=== PATIENT | male | born 1960 | race Caucasian/White ===

== ENCOUNTER 2018-01-18 20:41 | Emergency (ER) | payer SELFPAY ==
--- NOTE | 2018-01-18 20:44 | ER Report ---
History and Physical Time Seen By MD: 20:44 HPI/ROS CHIEF COMPLAINT: Back pain, chest pain HISTORY OF PRESENT ILLNESS: 57-year-old healthy male presents ambulatory to the ER concerned about another night of not sleeping. He's having severe pain between his shoulder blades radiating to his chest. He thinks it might be a hiatal hernia. He's been not feeling well all week. He denies history of cardiac disease. He denies recent URI cough sore throat fever or chills. He describes 7/10 dull pain, aching between his shoulder blades and radiating to his epigastrium. Patient denies diaphoresis, shortness of breath or dizziness. Patient denies changes with exertion. Patient denies leg swelling or calf pain. Patient reports he went antelope hunting and harvested antelope which he dragged to the car and lifted with his daughter. He notes no pain or difficulty with exertion. Patient was unable to sleep last night. Since the pain. Tonight out of 10 at approximately 12:30 Him awake all night. It did ease up throughout the day. REVIEW OF SYSTEMS: Respiratory: No cough, no dyspnea. Cardiovascular: No chest pain, no palpitations. Gastrointestinal: No vomiting, no abdominal pain. Musculoskeletal: As above Allergies: Coded Allergies: Penicillins (Verified Allergy, Unknown, 01/18/18) Home Meds Active Scripts Oxycodone Hcl/Acetaminophen (PERCOCET 5-325 MG TABLET) 1 Each Tablet, 1-2 EACH PO Q4-6H PRN for pain, #20 Prov:YANELI DUARTE DO 01/18/18 Reviewed Nurses Notes: Yes Old Medical Records Reviewed: Yes Constitutional Vital Sign - Last 24 Hours 01/18/18 01/18/18 01/18/18 01/18/18 20:41 20:44 20:45 20:56 Temp 98.5 Pulse ??? 66 63 Resp 16 21 B/P (MAP) 137/92 137/92 (107) Pulse Ox 96 O2 Delivery Room Air 01/18/18 01/18/18 01/18/18 21:11 21:13 23:57 Pulse 64 80 Resp 12 17 B/P (MAP) 130/83 (99) 131/91 (104) Pulse Ox 97 95 O2 Delivery Room Air Physical Exam General Appearance: The patient is alert, has no immediate need for airway protection and no current signs of toxicity. Mild distress, skin warm, dry, pink HEENT: Pupils equal and round no injection. TMs normal, oropharynx without redness or exudate, mucous membranes are moist Respiratory: Chest is non tender, lungs are clear to auscultation. No chest wall tenderness on compression Cardiac: regular rate and rhythm Gastrointestinal: Abdomen is soft and non tender, no masses, bowel sounds normal. Musculoskeletal: Neck: Neck is supple and non tender. Back: There is some tenderness on deep palpation of the right paraspinous muscles in the upper thoracic region. Extremities have full range of motion and are non tender. Skin: No rashes or lesions. DIFFERENTIAL DIAGNOSIS: After history and physical exam differential diagnosis was considered for back pain including but not limited to muscular pain, herniated disc, spine fracture, intra-abdominal causes and urinary tract infection. Additionally,chest pain including but not limited to myocardial ischemia, pericarditis pulmonary embolus, chest wall pain, pleural inflammation and pulmonary infectious causes. Medical Decision Making Data Points Result Diagram: 01/18/18205001/18/182050 Laboratory Hematology Test 01/18/18 20:51 Red Blood Count 5.53 M/uL (4.00-5.60) Mean Corpuscular Volume 86.7 fL (80.0-96.0) Mean Corpuscular Hemoglobin 28.7 pg (26.0-33.0) Mean Corpuscular Hemoglobin Concent 33.1 g/dL (32.0-36.0) Red Cell Distribution Width 14.0 % (11.5-14.5) Mean Platelet Volume 8.4 fL (7.2-11.1) Neutrophils (%) (Auto) 55.8 % (39.4-72.5) Lymphocytes (%) (Auto) 33.3 % (17.6-49.6) Monocytes (%) (Auto) 7.2 % (4.1-12.4) Eosinophils (%) (Auto) 2.6 % (0.4-6.7) Basophils (%) (Auto) 1.1 % (0.3-1.4) Nucleated RBC Relative Count (auto) 0.0 /100WBC Neutrophils # (Auto) 5.1 K/uL (2.0-7.4) Lymphocytes # (Auto) 3.0 K/uL (1.3-3.6) Monocytes # (Auto) 0.7 K/uL (0.3-1.0) Eosinophils # (Auto) 0.2 K/uL (0.0-0.5) Basophils # (Auto) 0.1 K/uL (0.0-0.1) Nucleated RBC Absolute Count (auto) 0.00 K/uL D-Dimer Quantitative (PE/DVT) 5.08 ug/ml (0-0.50) Sodium Level 140 mmol/L (137-145) Potassium Level 4.0 mmol/L (3.5-5.0) Chloride Level 100 mmol/L (98-107) Carbon Dioxide Level 28 mmol/L (22-30) Blood Urea Nitrogen 18 mg/dl (9-21) Creatinine 1.00 mg/dl (0.66-1.25) Glomerular Filtration Rate Calc > 60.0 Random Glucose 112 mg/dl (75-110) Calcium Level 9.1 mg/dl (8.4-10.2) Total Bilirubin 0.4 mg/dl (0.2-1.3) Aspartate Amino Transf (AST/SGOT) 37 U/L (0-35) Alanine Aminotransferase (ALT/SGPT) 30 U/L (0-56) Alkaline Phosphatase 80 U/L (0-126) Troponin I < 0.012 ng/ml B-Type Natriuretic Peptide 13 pg/ml (0-100) Total Protein 7.1 g/dl (6.3-8.2) Albumin 4.2 g/dl (3.5-5.0) Chemistry Test 01/18/18 20:51 White Blood Count 9.1 k/uL (4.5-11.0) Red Blood Count 5.53 M/uL (4.00-5.60) Hemoglobin 15.9 g/dL (14.0-18.0) Hematocrit 48.0 % (42.0-52.0) Mean Corpuscular Volume 86.7 fL (80.0-96.0) Mean Corpuscular Hemoglobin 28.7 pg (26.0-33.0) Mean Corpuscular Hemoglobin Concent 33.1 g/dL (32.0-36.0) Red Cell Distribution Width 14.0 % (11.5-14.5) Platelet Count 161 K/uL (150-450) Mean Platelet Volume 8.4 fL (7.2-11.1) Neutrophils (%) (Auto) 55.8 % (39.4-72.5) Lymphocytes (%) (Auto) 33.3 % (17.6-49.6) Monocytes (%) (Auto) 7.2 % (4.1-12.4) Eosinophils (%) (Auto) 2.6 % (0.4-6.7) Basophils (%) (Auto) 1.1 % (0.3-1.4) Nucleated RBC Relative Count (auto) 0.0 /100WBC Neutrophils # (Auto) 5.1 K/uL (2.0-7.4) Lymphocytes # (Auto) 3.0 K/uL (1.3-3.6) Monocytes # (Auto) 0.7 K/uL (0.3-1.0) Eosinophils # (Auto) 0.2 K/uL (0.0-0.5) Basophils # (Auto) 0.1 K/uL (0.0-0.1) Nucleated RBC Absolute Count (auto) 0.00 K/uL D-Dimer Quantitative (PE/DVT) 5.08 ug/ml (0-0.50) Glomerular Filtration Rate Calc > 60.0 Calcium Level 9.1 mg/dl (8.4-10.2) Total Bilirubin 0.4 mg/dl (0.2-1.3) Aspartate Amino Transf (AST/SGOT) 37 U/L (0-35) Alanine Aminotransferase (ALT/SGPT) 30 U/L (0-56) Alkaline Phosphatase 80 U/L (0-126) Troponin I < 0.012 ng/ml B-Type Natriuretic Peptide 13 pg/ml (0-100) Total Protein 7.1 g/dl (6.3-8.2) Albumin 4.2 g/dl (3.5-5.0) Coagulation Test 01/18/18 20:51 D-Dimer Quantitative (PE/DVT) 5.08 ug/ml EKG/Imaging EKG Interpretation 12 lead EK Rhythm: normal sinus rhythm, bradycardic rhythm at 61 bpm [place]: normal QRS: normal ST segments: normal, no evidence of ischemia or dysrhythmia Imaging X-ray: Two-view chest x-ray was obtained. I viewed the images myself on the PACS system. My interpretation of the images is: No infiltrate, no effusion, no rmal mediastinum. The radiologist interpretation had no clinically significant variation from this interpretation. Results: CT scan of the CTA pulmonary angiogram was obtained. The results of the study are CT angiogram of the chest: Indication: Back pain. Elevated d-dimer. Technique: Helical CT was performed through the chest following IV contrast enhancement with 75 cc of Isovue 370. Multiplanar reconstructions and MIP images are reviewed. One of the following dose optimization techniques was utilized in the performance of this exam: Automated exposure control; adjustment of the mA and/or kV according to the patient's size; or use of an iterative reconstruction technique. Specific details can be referenced in the facility's radiology CT exam operational policy. Comparison: None. Pulmonary arteries: There is uniform contrast enhancement. There are are no signs of pulmonary emboli. Aorta and great vessels: There is uniform contrast enhancement. No evidence of aneurysm or dissection. Heart and pericardial soft tissues: Within normal limits. Mediastinal soft tissues: Within normal limits. Lung moreno: Well-expanded and clear. No focal or diffuse opacities. Pleural spaces: No evidence of effusion, focal pleural thickening, or pneumothorax. Skeletal structures: There is poorly defined osteolytic destruction of the T3 vertebral body, with involvement of the left pedicle and transverse process. The appearance is consistent with malignancy, which may be primary or secondary. No other destructive skeletal lesions are clearly identified in the thoracic spine, ribs, scapulae, clavicles, or sternum. Upper abdomen: There are scattered tiny hypodense lesions in the liver, which appear cystic. IMPRESSION: No evidence of pulmonary emboli. No focal parenchymal or pleural abnormality. There is a destructive skeletal lesion at T3, consistent with primary or secondary malignancy. The study was read by the radiologist. I viewed the images myself on the PACS system. ED Course/Re-evaluation Clinical Indication for ER IV: IV Access ED Course Patient was admitted to an examination room. H&P was done. The differential diagnoses was considered. On clinical examination. Patient has significant pain between his shoulder blades. Patient has no other symptoms. He was recently and follow-up hunting and lifted an antelope into the back of his truck. I'm wondering if there is some musculoskeletal injury to his thoracic region. Diagnostic evaluation is undertaken. His EKG and troponin are unremarkable. His d-dimer is elevated to [address] angiogram is performed to rule out pulmonary embolism. The CT scan findings no pulmonary embolisms, but there is a lytic lesion noted in the T3 vertebrae worrisome for malignancy. Patient's informed of his results and provided a CAT scan report. He's advised to follow-up with oncology early next week for further diagnostic evaluation. Decision to Disposition Date: Jan 18, 2018 Decision to Disposition Time: 23:21 Depart Departure Latest Vital Signs Vital Signs Date Time Temp Pulse Resp B/P (MAP) Pulse Ox O2 Delivery O2 Flow Rate FiO2 01/18/18 23:57 80 17 131/91 (104) 95 Room Air 01/18/18 20:44 98.5 Impression: Primary Impression: Lytic bone lesions on xray Additional Impression: Thoracic back pain Condition: Improved Disposition: HOME OR SELF-CARE Referrals: EMPERATRIZ ESCUDERO MD, STEVEN R MD New Scripts Oxycodone Hcl/Acetaminophen (PERCOCET 5-325 MG TABLET) 1 Each Tablet 1-2 EACH PO Q4-6H PRN for pain, #20 Prov: YANELI DUARTE DO 01/18/18 Patient Instructions: Back Pain (ED) Additional Instructions: Take ibuprofen 200 mg 3 tablets 3 times a day as needed for pain relief Follow-up with oncology clinic early next week Problem Qualifiers Additional Impression: Thoracic back pain Chronicity: acute Back pain laterality: midline Qualified Codes: M54.6 - Pain in thoracic spine YANELI DUARTE DO Jan 18, 2018 20:44
[2018-01-18] MEDS ORDERED: ASPIRIN 81 MG CHEW PO ONE (20:55)
[2018-01-18 21:02] LABS: PLATELET COUNT, AUTOMATED 161 K/uL (150-450)
[2018-01-18] MEDS ORDERED: LIDOCAINE 2% VISC SLN 15ML UDC PO ONE (21:05)
[2018-01-18] MEDS ORDERED: MAG HYD/AL HYD/SIMETH 30ML UDC PO ONE (21:05)
--- NOTE | 2018-01-18 21:38 | RADIOLOGY IMAGING REPORT ---
FACILITY: [facility] - [place] PATIENT NAME: Jean Paul Go : 1960 MR: [id number] V: [id number] EXAM DATE: ORDERING PHYSICIAN: YANELI DUARTE TECHNOLOGIST: Location: [facility] [place] Patient: Jean Paul Go : 1960 Visit/Account:[id number] Date of Sevice: 01/18/2018 EXAMINATION: Chest 2 Views HISTORY: Chest pain. COMPARISON: None. FINDINGS: The lungs are clear. No focal consolidation or pleural fluid. No pneumothorax. Normal cardiomedias tinal silhouette, with normal heart size and pulmonary vascularity. Visualized osseous structures ar e unremarkable. IMPRESSION: Negative chest. Report Dictated By: Pj Villegas MD at 01/18/2018 9:32 PM Report E-Signed By: Pj Villegas MD at 01/18/2018 9:33 PM [id number]
--- NOTE | 2018-01-18 21:40 | EKG ---
FACILITY: [facility] PATIENT NAME: KARLEY ARROYO : [id number] MR: [id number] V: [id number] EXAM DATE: ORDERING PHYSICIAN: YANELI DUARTE TECHNOLOGIST: DEVORAH Test Reason : CP Blood Pressure : / mmHG Vent. Rate : 061 BPM Atrial Rate : 061 BPM P-R Int : 190 ms QRS Dur : 092 ms QT Int : 440 ms P-R-T Axes : 071 070 070 degrees QTc Int : 442 ms Normal sinus rhythm Normal ECG No previous ECGs available Confirmed by NEERU AGUILERA ([id number]) on 01/19/2018 6:36:41 AM Referred By: FELICIA Confirmed By:NEERU AGUILERA
[2018-01-18] MEDS ORDERED: NS(*) 0.9% 50 ML BAG 50 ML ONE (22:19)
[2018-01-18] MEDS ORDERED: IOPAMIDOL 76% 75 ML INFUS BTL 75 ML ONE (22:19)
--- NOTE | 2018-01-18 23:20 | RADIOLOGY IMAGING REPORT ---
[facility] PATIENT NAME: Jean Paul Go : 1960 MR: [id number] V: [id number] EXAM DATE: ORDERING PHYSICIAN: YANELI PERSAUD TECHNOLOGIST: Location: [facility] Patient: Jean Paul Go : 1960 Visit/Account:[id number] Date of Sevice: 01/18/2018 CT angiogram of the chest: Indication: Back pain. Elevated d-dimer. Technique: Helical CT was performed through the chest following IV contrast enhancement with 75 cc of Isovue 370. Multiplanar reconstructions and MIP images are reviewed. One of the following dose optimization techniques was utilized in the performance of this exam: Autom ated exposure control; adjustment of the mA and/or kV according to the patient's size; or use of an i terative reconstruction technique. Specific details can be referenced in the facility's radiology CT exam operational policy. Comparison: None. Pulmonary arteries: There is uniform contrast enhancement. There are are no signs of pulmonary emboli . Aorta and great vessels: There is uniform contrast enhancement. No evidence of aneurysm or dissection . Heart and pericardial soft tissues: Within normal limits. Mediastinal soft tissues: Within normal limits. Lung moreno: Well-expanded and clear. No focal or diffuse opacities. Pleural spaces: No evidence of effusion, focal pleural thickening, or pneumothorax. Skeletal structures: There is poorly defined osteolytic destruction of the T3 vertebral body, with in volvement of the left pedicle and transverse process. The appearance is consistent with malignancy, w hich may be primary or secondary. No other destructive skeletal lesions are clearly identified in the thoracic spine, ribs, scapulae, clavicles, or sternum. Upper abdomen: There are scattered tiny hypodense lesions in the liver, which appear cystic. IMPRESSION: No evidence of pulmonary emboli. No focal parenchymal or pleural abnormality. There is a destructive skeletal lesion at T3, consistent with primary or secondary malignancy. A preliminary report was called to Dr. Persaud at [facility] at 2305 hours. Report Dictated By: Aston Rodriguez MD at 01/18/2018 10:53 PM Report E-Signed By: Aston Rodriguez MD at 01/18/2018 11:16 PM WSN:[id number]
[2018-01-18] MEDS ORDERED: OXYC-865 PO (23:27)
[2018-01-18] MEDS ORDERED: oxyCODONE/ACETAMIN 5/325MG TH 2 TAB/BOTTLE PO ONE ×2 (23:30)
[2018-01-18 23:57] VITALS: BP 131/91
== END 2018-01-18 23:44 | disposition home or self-care (01) ==
LOC: ER 20:57
DX: M89.9 Disorder of bone, unspecified (principal); M54.6 Pain in thoracic spine
CPT/HCPCS: 71046; 71275; 83880; 84484; 85025; 85379; 93005; 99284; J7050; Q9967; 82040; 82247; 82310; 82374; 82435; 82565; 82947; 84075; 84132; 84155; 84295; 84450; 84460; 84520

== ENCOUNTER → 2018-01-28 | Outpatient (CLI) | payer SELFPAY ==
[~2018-01-28] MED LIST: GADOBENATE 529MG/1ML 15ML VIAL IVP ONE; NS(*) 0.9% 50 ML BAG 50 ML ONE; OXYC-865 PO
--- NOTE | 2018-01-28 15:33 | RADIOLOGY IMAGING REPORT ---
FACILITY: [facility] PATIENT NAME: Jean Paul Go : 1960 MR: [id number] V: [id number] EXAM DATE: ORDERING PHYSICIAN: AFIA ROBLES TECHNOLOGIST: Location: [facility] Patient: Jean Paul Go : 1960 Visit/Account:[id number] Date of Sevice: 01/28/2018 ABDOMEN W W/O CONTRAST HISTORY: Liver lesions on prior CT ADDITIONAL HISTORY: None. TECHNIQUE: TECHNIQUE: Multiplanar multisequence magnetic resonance imaging of the abdomen with and without intravenous contrast. CONTRAST: 15 mL of MultiHance COMPARISON: CT on pelvis January 22, 2018 FINDINGS: Visualized lung bases: Grossly unremarkable. Liver: There are multiple small cysts seen throughout the liver. Additionally there is a 1.9 cm mass in the caudate lobe the liver demonstrate increased T2 signal intensity with small amount of arteria l enhancement. There was further progressive enhancement on the follow-up portal venous and delayed phase images. The mass never becomes completely enhanced although was most likely a hemangioma. The re is also a 1.8 cm mass anterior aspect lateral segment left lobe of the liver that demonstrates inc reased T2 signal intensity and delayed puddling type peripheral contrast enhancement on the five-jaci te image. There is very little enhancement on the other phases. This likely represents a hemangioma Gallbladder: Negative. Bile ducts: Nondistended and unremarkable. Spleen: Negative. Adrenal glands: Negative. Pancreas: Negative. Kidneys: Negative. Vessels/spaces/nodes: No bulky adenopathy or ascities. Visualized GI: Grossly unremarkable. Bones/soft tissues: Incompletely imaged is abnormal increased T2 signal intensity in the left iliac b one which corresponds to the moth-eaten lytic lesion seen on CT IMPRESSION: There are multiple lesions within the liver. Many appear to represent cysts. There is a 1.8 cm mass anterior aspect lateral segment left lobe of the liver that demonstrates delayed puddling type perip heral contrast enhancement on the five minute image. There is very little enhancement on the other p hases. This likely represents a hemangioma although is not entirely typical. Also noted is 1.9 cm m ass in the caudate lobe of the liver which also likely represents a hemangioma although again not ent irely typical. Given the CT findings of osseous metastases 3-6 month follow-up MR of these liver les ions recommended for further evaluation Incompletely imaged is abnormal bone lesions the left iliac bone consistent with the prior CT finding s of lytic metastases Report Dictated By: Oma Ding MD at 01/28/2018 3:14 PM Report E-Signed By: Oma Ding MD at 01/28/2018 3:29 PM WSN:[id number]
== END ==
LOC: MRI 13:32
PROVIDERS: ATTEND Nurse Practitioner
DX: K76.9 Liver disease, unspecified (principal); M89.9 Disorder of bone, unspecified
CPT/HCPCS: 74183; A9577; J7050

== ENCOUNTER 2018-01-29 12:25 | Outpatient (RCR) | payer SELFPAY ==
[2018-01-22 10:46] VITALS: BP 120/75
--- NOTE | 2018-01-22 13:22 | ONCOLOGY HISTORY AND PHYSICAL ---
CHIEF COMPLAINT "I have a lesion on my back." HISTORY OF PRESENT ILLNESS Patient is a 57-year-old male who was seen today for evaluation of recently found destructive lesion at T3. He is a healthy male with no medical problems, but presented to the emergency room on 01/18/2018 with back/chest pain. Cardiac workup was negative. D-dimer was elevated. He underwent a CT with angiogram. No pulmonary embolism was found. There were no focal abnormalities noted in the lung. However, a destructive lesion was noted at T3, consistent with primary or secondary malignancy. He relates that he's had intermittent back pain for the past year but this is significantly worse. He has had 3-4 days of drenching night sweats. He also describes some urinary hesitency and difficulty emptying. Mr. Go presents today with his to establish care and workup. PAST MEDICAL HISTORY Negative. FAMILY HISTORY Brother of leukemia at age 33 years old. A second brother at melanoma at age 65. He has a third brother who is healthy. SOCIAL HISTORY Patient is . They have two children, ages 26 and 35. 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 He is a nonsmoker. He does not use illicit drugs. MEDICATIONS Percocet p.r.n. ALLERGIES PENICILLIN. REVIEW OF SYSTEMS CONSTITUTIONAL: No fevers or chills. One to two week history of drenching night sweats, which have occurred intermittently. He has lost weight, approximately 10 pounds over the past month. HEENT: No tinnitus. No nasal discharge. No sore throat. RESPIRATORY: No cough, wheezing, or hemoptysis. CARDIOVASCULAR: Some chest discomfort, which he relates is related to taking deep breaths, likely secondary to back pain. GASTROINTESTINAL: No nausea, vomiting, or diarrhea. Mild constipation associated with Percocet. GENITOURINARY: Some issues with occasionally weak stream and delayed emptying, intermittent. No hematuria or dysuria. MUSCULOSKELETAL: Mid back pain as discussed above. This is intermittent, but persistent. HEMATOLOGIC: No bruising or bleeding. SKIN: No rash. PHYSICAL EXAMINATION VITAL SIGNS: Weight 79.2 kg, blood pressure 120/75, pulse 56, respirations 16, temperature 96.9, O2 saturation 96% on room air. GENERAL: Patient is a well-developed, well-nourished male in no acute distress. He moves gingerly in the exam room when lying on the table. HEENT: Head: Normocephalic, atraumatic. Eyes: No scleral icterus. Mouth: Moist mucous membranes. No lesions noted. No pharyngeal erythema. NECK: Supple. No masses. LYMPHATIC: No palpable adenopathy. CARDIOVASCULAR: Heart rate regular, 56 per minute without murmur, S3 or S4. LUNGS: Clear bilaterally. ABDOMEN: Soft, nontender, nondistended. Active bowel sounds. No masses or organomegaly. EXTREMITIES: No edema. NEUROLOGIC: Nonfocal. DIAGNOSTIC DATA CBC on 01/18/2018 showed a WBC of 9.1, hemoglobin 15.9, hematocrit 48.0, platelets 161,000. CMP was completely within normal limits. IMPRESSION AND PLAN The patient is a 57-year-old healthy male who presented to the emergency room on 01/18/2018 with upper back pain versus chest pain. He underwent cardiac workup, which was negative. CT angiogram showed no evidence of pulmonary embolism or other focal abnormalities. However, a destructive lesion was noted at T3. He is here for workup and plan. 1. Case has been reviewed by Dr. Tom. At this time, workup will be completed with a CT of the abdomen and pelvis. This will be done today. 2. PSA, CEA and LDH will be drawn today. 3. We spent a total of 45 minutes reviewing his history and plan. He understands that a biopsy of the T3 lesion may be needed. Dr. Tom will review all of the above when available, and further plans will be made at that time. SOFI
--- NOTE | 2018-01-22 17:38 | RADIOLOGY IMAGING REPORT ---
FACILITY: [facility] [place] PATIENT NAME: Jean Paul Go : 1960 MR: [id number] V: [id number] EXAM DATE: [id number] ORDERING PHYSICIAN: AFIA ROBLES TECHNOLOGIST: [place] [facility] [place]: Jean Paul Go : 1960 Visit/Account:[id number] Date of Sevice: 01/22/2018 ABDOMEN/PELVIS W/WO CONTRAST HISTORY: Lytic lesion at T3 TECHNIQUE: Axial images acquired through the abdomen/pelvis both with and without IV contrast.. Vlad nal and sagittal reformatting also performed.Dose Lowering Technique One of the following dose optimization techniques was utilized in the performance of this exam: Autom ated exposure control; adjustment of the mA and/or kV according to the patient's size; or use of an i terative reconstruction technique. Specific details can be referenced in the facility's radiology C T exam operational policy. CONTRAST: 75 mL Isovue-370 COMPARISON: CT of the chest January 18, 2018 FINDINGS: Visualized lung bases: Negative. Hepatobiliary: There are multiple round hypoattenuating masses seen throughout the liver. Many are too small to characterize by CT. The 1.5 cm lesion inferior aspect right lobe appears to represent s imple cyst. Is a 1.8 cm lesion in the caudate lobe the CT Hounsfield units of 50 which is not compat ible with a simple cyst. There is a 2.3 cm slightly exophytic cortical lesion anterior aspect of the lateral segment of the left lobe with CT Hounsfield units of 49 also not consistent with a simple cy st. Spleen: Negative. Adrenals: Negative. Pancreas: Negative. Kidneys ureters and bladder: Negative. Genitalia: Negative. GI: There is diverticulosis of the left-sided colon although no CT evidence of acute diverticulitis. There is extensive amount of fecal material seen throughout the colon which can be seen with consti pation. The appendix is visualized and does not appear distended Vessels/spaces/nodes: Negative. Bones/soft tissues: There is a moderately lytic destructive process throughout the inferior pubic ra mus on the left. There are several lytic lesions involving the medial aspect of the superior pubic ramus on the right without cortical disruption. . There are multiple lytic lesions in the left iliac bone producing destructive changes of the medial a nd lateral. Cortices Additional findings: None pertinent. IMPRESSION: There are lytic lesions involving the inferior pubic ramus on the left, medial aspect superior pubic ramus on the right and the left iliac bone consistent with metastatic disease. Diverticulosis left-sided colon although no CT evidence of acute diverticulitis There is an extensive amount of fecal material throughout colon which can be seen with constipation There are multiple hypoattenuating masses within the liver. Some appear to represent cysts although some are clearly solid and should be further evaluated with MR the liver with and without contrast Report Dictated By: Oma Ding MD at 01/22/2018 5:22 PM Report E-Signed By: Oma Ding MD at 01/22/2018 5:34 PM CATARINON:ELISABET
--- NOTE | 2018-01-23 16:51 | ONCOLOGY FOLLOW UP NOTE ---
EVENT DATE: January 23, 2018 I spoke with and Mrs. Go today via telephone regarding the results of his recent CT scan of the abdomen and pelvis done on 01/22/18. This is a 57-year-old male who was noted to have a destructive lesion at T3 when seen at the Emergency Room last week. I reviewed the findings of the CT scan which show lytic lesions involving the inferior pubic ramus on the left medial aspect, superior pubic ramus on the right, and left iliac bone, consistent with metastatic disease. The liver also noted multiple hypoattenuating masses. Some appear to represent cysts, although some are clearly solid. It was recommended that MR of the liver with and without contrast be done. PSA 379; CEA pending. I have also reviewed this with Dr. Tom. At this time, he will undergo MRI of the liver on 01/28/18. He will be seen by Dr. Tom on 01/29/18 for further treatment planning. Patient and his state understanding. We will see them next week after MRI of the liver. SOFI
[~2018-01-29] VITALS: Ht 182.9 cm; Wt 78.8 kg
[~2018-01-29 12:25] MED LIST changes: -GADOBENATE 529MG/1ML 15ML VIAL IVP ONE; +IOPAMIDOL 76% 75 ML INFUS BTL 75 ML ONE; -NS(*) 0.9% 50 ML BAG 50 ML ONE
[2018-01-29 12:35] VITALS: BP 121/80
--- NOTE | 2018-01-30 03:56 | ONCOLOGY FOLLOW UP NOTE ---
EVENT DATE: January 29, 2018 REASON FOR FOLLOWUP Back pain, T3 lesion, elevated PSA. INTERIM HISTORY Gonzalo returns to the clinic for a followup visit today. He is accompanied by his . He reports that his pain control has been a bit better since his last visit. He reports no fevers, chills, or sweats. His appetite is good and his weight has been stable. He reports no new urinary symptoms, although he does state that he has a big prostate. He reports no shortness of breath, chest pain, or cough. He did have somewhat of an acute and fleeting pain episode during our visit today, but quickly became comfortable once again. As discussed, he had previously gone for a CT scan of the chest that showed an incidental destructive lesion at T3. He subsequently went for a CT scan of the abdomen and pelvis as well as subsequent MRI of the abdomen. He is here to review these results. He has also had labs drawn, to include a CEA and PSA. REVIEW OF SYSTEMS Otherwise negative on all systems reviewed. PAST MEDICAL HISTORY The patient is otherwise healthy. CURRENT MEDICATIONS Percocet p.r.n. ALLERGIES PENICILLIN. FAMILY HISTORY His brother of leukemia at age 33 years old. A second brother of melanoma at age 65. A third brother is healthy. SOCIAL HISTORY The patient is with two children, who are grown. 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 He is a nonsmoker. He does not use illicit drugs. PHYSICAL EXAMINATION VITAL SIGNS: Temperature is 97.0, blood pressure 121/80, heart rate 70, respirations 16, oxygen saturation 96% on room air, weight 78.8 kg. GENERAL: Patient is alert and oriented x3, in no apparent distress, sitting in the exam room chair. He appears quite healthy. He is interactive and very pleasant. HEENT: Anicteric sclerae. NEUROLOGIC: Grossly nonfocal. His gait is normal. EXTREMITIES: No edema, clubbing, or cyanosis. SKIN: Not concerning for rash or lesion. LABORATORY STUDIES Reviewed per the [facility] record. Of note, his PSA on January 22 was 392. CEA on that day was 1.8. ASSESSMENT AND PLAN Metastatic prostate cancer. For the time being this is working diagnosis. We spent a good deal of time today discussing the need for a tissue diagnosis. We discussed the utility of biopsying the T3 vertebral lesion. The images will be reviewed in [place], and I will enter an order for interventional radiology biopsy of the vertebral lesion. Another potential site would be the pubic ramus. The patient would like to avoid prostate biopsies, and as discussed today, I do not think these will be necessary. We discussed the likely diagnosis of prostate cancer, and we did get into preliminary information about his treatment, prognosis, and other topics. The patient and his had additional questions for me today, and I believe I answered all their questions to their satisfaction. I will plan to have him back for followup in the next two weeks to allow time for biopsy to occur. Next likely step will be for him to go for additional imaging for staging (CT with nuclear medicine bone scan) to complete staging. I spent a total of 45 minutes of time with the patient and his today, and 40 minutes of this was spent in direct counseling and coordination of care. SOFI
== END 2018-04-22 ==
LOC: ONC 12:25
PROVIDERS: ATTEND Nurse Practitioner
DX: M89.9 Disorder of bone, unspecified (principal); R39.11 Hesitancy of micturition; R39.14 Feeling of incomplete bladder emptying
CPT/HCPCS: 36415; 74178; 82378; 83615; 84153; 99202; 99212; Q9967

== ENCOUNTER → 2018-05-05 | Outpatient (CLI) | payer SELFPAY ==
[~2018-05-05] MED LIST changes: +DIA5 PO; -IOPAMIDOL 76% 75 ML INFUS BTL 75 ML ONE
== END ==
LOC: AMB 23:10
PROVIDERS: ATTEND Nurse Practitioner
DX: M54.9 Dorsalgia, unspecified (principal); C61 Malignant neoplasm of prostate; C79.51 Secondary malignant neoplasm of bone
CPT/HCPCS: A0425; A0433

== ENCOUNTER 2018-05-06 | Emergency (ER) | payer SELFPAY ==
[~2018-05-06] MED LIST changes: -DIA5 PO
[2018-05-06 00:02] VITALS: BP 112/105
[2018-05-06] MEDS ORDERED: DIAZEPAM 5 MG TAB PO ONE (00:25)
[2018-05-06] MEDS ORDERED: HYDROMORPHONE HCL 1 MG/ML SYRINGE IVP ONE (00:25)
--- NOTE | 2018-05-06 01:19 | ER Report ---
History and Physical Time Seen By MD: 00:05 Hx. of Stated Complaint: PT DIAGNOSED WITH METASTATIC CANCER IN SPINE LAST DECEMBER. PT PRIMARY COMPLAINT OF LEFT LOWER BACK PAIN. HPI/ROS CHIEF COMPLAINT: Back pain HISTORY OF PRESENT ILLNESS: 58-year-old male who has prostate carcinoma and known metastases to the pelvic bones as well as T3, who did not previously have back pain, on Saturday sneezed and developed sudden onset left paraspinal lumbar pain. This pain gradually improved until this evening when he states he tripped over his legs but did not completely fall, however had sudden onset severe left-sided back pain. Pain radiates to upper buttocks but not down leg. Pain is 10 out of 10 and he required EMS transport as well as morphine and Ativan though with little relief. His pain is 8 out of 10 currently. He has no lower extremity weakness or numbness. He has no incontinence. There is no perineal anesthesia. His no chest pain, fevers, shortness breath. He has had no falls or recent injuries. REVIEW OF SYSTEMS: Constitutional: No fever, no chills. Eyes: No discharge. ENT: No sore throat. Cardiovascular: No chest pain, no palpitations. Respiratory: No cough, no shortness of breath. Gastrointestinal: No abdominal pain, no vomiting. Genitourinary: no dysuria, no incontinence Musculoskeletal: above Skin: No rashes. Neurological: No headache. Remainder of the 14 system rev: Yes Allergies: Coded Allergies: Penicillins (Verified Allergy, Unknown, 05/06/18) Home Meds Active Scripts Oxycodone Hcl/Acetaminophen (PERCOCET 5-325 MG TABLET) 1 Each Tablet, 1-2 EACH PO Q4-6H PRN for pain, #20 Prov:YANELI DUARTE DO 01/18/18 Reviewed Nurses Notes: Yes Old Medical Records Reviewed: Yes Hx Substance Use Disorder: No Hx Alcohol Use: No Constitutional Vital Sign - Last 24 Hours 05/06/18 00:00 Temp 97.7 Pulse 85 Resp 22 B/P (MAP) 112/105 Pulse Ox 92 O2 Delivery Room Air Physical Exam General Appearance: The patient is alert, has no immediate need for airway protection and no signs of toxicity. He is lying on gurney, appears very uncomfortable, with hips and knees flexed. Eyes: Pupils equal and round no pallor or injection. ENT, Mouth: Mucous membranes are moist. Respiratory: There are no retractions, lungs are clear to auscultation. Cardiovascular: Regular rate and rhythm. Gastrointestinal: Abdomen is soft and non tender, no masses, bowel sounds normal. No pulsatile masses Neurological: alert, oriented, moves all ext Skin: Warm and dry, no rashes. Musculoskeletal: Extremities are nontender, nonswollen and have full range of motion. No spine tenderness throughout. No step-offs. Right para spinal muscles soft and nontender. Left lumbar paraspinal muscle spasm throughout lumbar area that is tender. Negative straight leg raise, 5 out of 5 lower extremity muscle strength bilaterally, sensation, normal pulses. DIFFERENTIAL DIAGNOSIS: After history and physical exam differential diagnosis was considered for back pain including but not limited to cauda equina, muscular pain, herniated disc, spine fracture, intra-abdominal causes and urinary tract infection. Medical Decision Making ED Course/Re-evaluation ED Course 58-year-old male presents with back spasm. He does not have any findings concerning for cauda equina. Given his known metastases, I x-rayed his lumbar spine to rule out compression fracture. My review of spine shows no evidence of acute findings. On repeat exam, patient has continued left lower paraspinal muscle spasm. However, at this point he is able to sit up and ambulate to the bathroom and feels comfortable enough to go home. I offered further medication but patient at this time refuses. Reasonable for discharge with strict return precautions. Decision to Disposition Date: May 06, 2018 Decision to Disposition Time: 01:40 Depart Departure Latest Vital Signs Vital Signs Date Time Temp Pulse Resp B/P (MAP) Pulse Ox O2 Delivery O2 Flow Rate FiO2 05/06/18 00:00 97.7 85 22 112/105 92 Room Air Impression: Primary Impression: Lumbar paraspinal muscle spasm Condition: Improved Disposition: HOME OR SELF-CARE Referrals: ROCIO SAVAGE MD (PCP) New Scripts Oxycodone Hcl/Acetaminophen (PERCOCET 5-325 MG TABLET) 1 Each Tablet 1 EACH PO Q4H PRN for PAIN, #12 TAB 0 Refills Prov: PIYUSH LUIS MD 05/06/18 Diazepam (VALIUM) 5 Mg Tablet 5 MG PO 2-3XD for Muscle Relaxant, #15 TAB Prov: PIYUSH LUIS MD 05/06/18 Patient Instructions: Acute Low Back Pain (ED) Additional Instructions: As we discussed, I recommend you take ibuprofen 600 mg every 8 hours for pain. You may use Valium for additional muscle relaxants as needed and if these do not help sufficiently, you may use Percocet for breakthrough pain. I recommend you ice 20 minutes at a time. After 1-2 days you may alternate heat and ice as tolerated. I recommend you begin stretches as soon as possible. Specifically, stretch first thing in the morning and before bed as well as a couple times during the day. I have provided you some lumbar back stretches. If you're pain persists for more than 1-2 weeks, follow-up with her primary doctor for physical therapy referral. Please return immediately for new weakness, incontinence, new numbness, uncontrolled pain or concerning symptoms. PIYUSH LUIS MD May 06, 2018 01:19
[2018-05-06] MEDS ORDERED: OXYC-865 PO (01:42)
[2018-05-06] MEDS ORDERED: DIA5 PO (01:42)
--- NOTE | 2018-05-06 02:00 | RADIOLOGY IMAGING REPORT ---
FACILITY: [facility] PATIENT NAME: Jean Paul Go : 1960 MR: [id number] V: [id number] EXAM DATE: ORDERING PHYSICIAN: PIYUSH LUIS TECHNOLOGIST: [place] [facility] [place]: Jean Paul Go : 1960 Visit/Account:[id number] Date of Sevice: 05/06/2018 Lumbar spine Indication: Severe back pain. Known metastasis. Comparison: CT abdomen/pelvis dated January 22, 2018. FINDINGS: 2 views of the lumbar spine were obtained. There are 5 lumbar type vertebral bodies. There is no acute osseous or acute alignment abnormality. No evidence of spondylolisthesis or spondylolysis. The vertebral body heights appear well-maintained. Minimal multilevel degenerative disc disease. No visualized osteoblastic or osteolytic lesions. Mild dextroscoliosis. Moderate to large large stool within the colon. IMPRESSION: 1. No acute osseous or acute alignment abnormality of the lumbar spine. 2. No visualized bone metastasis. 3. Moderate to large volume stool within the colon. Recommend correlation for constipation. Report Dictated By: Marquise Freedman MD at 05/06/2018 1:54 AM Report E-Signed By: Marquise Freedman MD at 05/06/2018 1:56 AM WSN:[id number]
[2018-05-06] MEDS ORDERED: DIAZEPAM 5 MG TAB TH 2 TAB/BOTTLE PO ONE (02:05)
== END 2018-05-06 02:10 | disposition home or self-care (01) ==
LOC: ER 00:06
DX: M62.830 Muscle spasm of back (principal)
CPT/HCPCS: 72100; 96374; 99283; J1170; 93005

== ENCOUNTER 2018-06-12 17:10 | Emergency (ER) | payer SELFPAY ==
[~2018-06-12 17:10] MED LIST changes: +DIA5 PO
--- NOTE | 2018-06-12 17:18 | ER Report ---
History and Physical Time Seen By MD: 17:17 (MORALES SORENSEN DO) HPI/ROS CHIEF COMPLAINT: Weakness, abdominal numbness, difficulty urinating, nausea HISTORY OF PRESENT ILLNESS: Patient is a 58-year-old male here with complaints of generalized weakness, aches, abdominal numbness, decreased urine output, decreased appetite, nausea in the setting of metastatic prostate cancer. Patient reportedly has a thoracic spine lesion which giveshim significant amounts of pain but the patient denies lumbar pain. Patient did report having weakness and falls today prompting evaluation. Patient is afebrile at time of evaluation. Patient has not being treated for his prostate cancer. REVIEW OF SYSTEMS: Constitutional: No fever, no chills. Eyes: No discharge. ENT: No sore throat. Cardiovascular: No chest pain, no palpitations. Respiratory: No cough, no shortness of breath. Gastrointestinal: No abdominal pain, no vomiting, + abdominal paresthesias Genitourinary: + decreased UO Musculoskeletal: + thoracic back pain, denies lumbar back pain Skin: No rashes. Neurological: No headache. (MORALES SORENSEN DO) Allergies: Coded Allergies: Penicillins (Verified Allergy, Unknown, 05/06/18) Home Meds Active Scripts Dexamethasone (Decadron) 6 Mg Tablet, 1 TAB PO BID for spinal tumor swelling, #14 Prov:YANELI PERSAUD DO 06/12/18 Oxycodone Hcl/Acetaminophen (PERCOCET 5-325 MG TABLET) 1 Each Tablet, 1 EACH PO Q4H PRN for PAIN, #12 TAB 0 Refills Prov:PIYUSH LUIS MD 05/06/18 Diazepam (VALIUM) 5 Mg Tablet, 5 MG PO 2-3XD for Muscle Relaxant, #15 TAB Prov:PIYUSH LUIS MD 05/06/18 Oxycodone Hcl/Acetaminophen (PERCOCET 5-325 MG TABLET) 1 Each Tablet, 1-2 EACH PO Q4-6H PRN for pain, #20 Prov:YANELI PERSAUD DO 01/18/18 Hx Substance Use Disorder: No Hx Alcohol Use: No (MORALES SORENSEN DO) Constitutional Vital Sign - Last 24 Hours 06/12/18 06/12/18 06/12/18 06/12/18 17:10 17:20 17:25 17:30 Pulse ??? 79 B/P (MAP) 129/98 (108) 141/97 (112) Pulse Ox 96 06/12/18 06/12/18 06/12/18 06/12/18 17:40 17:55 18:00 18:04 Temp 98.0 Pulse 72 70 75 Resp 14 B/P (MAP) 124/95 (105) 129/98 Pulse Ox 95 93 97 O2 Delivery Room Air 06/12/18 06/12/18 06/12/18 06/12/18 18:10 18:25 18:30 18:40 Pulse 68 78 62 B/P (MAP) 135/95 (108) Pulse Ox 97 95 95 06/12/18 06/12/18 06/12/18 06/12/18 18:45 19:00 19:15 19:28 Pulse 63 ??? 69 B/P (MAP) ???/??? (1665) 117/63 (81) Pulse Ox 95 93 06/12/18 06/12/18 06/12/18 06/12/18 19:30 19:45 20:00 20:05 Pulse 79 86 74 76 B/P (MAP) 137/84 (101) Pulse Ox 93 92 92 92 06/12/18 06/12/18 06/12/18 20:20 20:30 20:35 Pulse 84 76 B/P (MAP) 135/87 (103) Pulse Ox 92 92 (YANELI PERSAUD DO) Physical Exam General Appearance: The patient is alert, has no immediate need for airway protection and no signs of toxicity. Uncomfortable appearing Eyes: Pupils equal and round no pallor or injection. ENT, Mouth: Mucous membranes are moist. Respiratory: There are no retractions, lungs are clear to auscultation. Cardiovascular: Regular rate and rhythm. Gastrointestinal: Abdomen is soft and + suprapubic tenderness on palpation, no masses, bowel sounds normal. Neurological: No focal neuro findings Skin: Warm and dry, no rashes. Musculoskeletal: Neck is supple non tender. Extremities are nontender, nonswollen and have full range of motion. DIFFERENTIAL DIAGNOSIS: After history and physical exam differential diagnosis was considered for electrolyte abnormalities, metastatic disease, dehydration, cauda equina, viral syndrome, sepsis (MORALES SORENSEN DO) Medical Decision Making Data Points Result Diagram: 06/12/18 1744 06/12/18 1744 Laboratory Hematology Test 06/12/18 17:44 06/12/18 18:14 Red Blood Count 5.59 M/uL (4.00-5.60) Mean Corpuscular Volume 85.5 fL (80.0-96.0) Mean Corpuscular Hemoglobin 29.3 pg (26.0-33.0) Mean Corpuscular Hemoglobin Concent 34.3 g/dL (32.0-36.0) Red Cell Distribution Width 13.4 % (11.5-14.5) Mean Platelet Volume 8.3 fL (7.2-11.1) Neutrophils (%) (Auto) 77.7 % (39.4-72.5) Lymphocytes (%) (Auto) 13.0 % (17.6-49.6) Monocytes (%) (Auto) 8.4 % (4.1-12.4) Eosinophils (%) (Auto) 0.3 % (0.4-6.7) Basophils (%) (Auto) 0.6 % (0.3-1.4) Nucleated RBC Relative Count (auto) 0.0 /100WBC Neutrophils # (Auto) 8.3 K/uL (2.0-7.4) Lymphocytes # (Auto) 1.4 K/uL (1.3-3.6) Monocytes # (Auto) 0.9 K/uL (0.3-1.0) Eosinophils # (Auto) 0.0 K/uL (0.0-0.5) Basophils # (Auto) 0.1 K/uL (0.0-0.1) Nucleated RBC Absolute Count (auto) 0.00 K/uL Sodium Level 135 mmol/L (137-145) Potassium Level 4.5 mmol/L (3.5-5.0) Chloride Level 97 mmol/L (98-107) Carbon Dioxide Level 26 mmol/L (22-30) Blood Urea Nitrogen 17 mg/dl (9-21) Creatinine 1.10 mg/dl (0.66-1.25) Glomerular Filtration Rate Calc > 60.0 Random Glucose 100 mg/dl (75-110) Lactate 1.9 mmol/L (0.7-2.1) Calcium Level 9.9 mg/dl (8.4-10.2) Total Bilirubin 1.3 mg/dl (0.2-1.3) Aspartate Amino Transf (AST/SGOT) 64 U/L (0-35) Alanine Aminotransferase (ALT/SGPT) 29 U/L (0-56) Alkaline Phosphatase 102 U/L (0-126) Troponin I < 0.012 ng/ml Total Protein 7.7 g/dl (6.3-8.2) Albumin 5.2 g/dl (3.5-5.0) Lipase 92 U/L (23-300) Urine Color Yellow Urine Clarity Clear Urine pH 6.0 pH (4.8-9.5) Urine Specific [place] 1.013 Urine Protein 100 mg/dL (NEGATIVE) Urine Glucose (UA) Negative mg/dL (NEGATIVE) Urine Ketones 20 mg/dL (NEGATIVE) Urine Blood Small (NEGATIVE) Urine Nitrite Negative (NEGATIVE) Urine Bilirubin Negative (NEGATIVE) Urine Urobilinogen Negative mg/dL (0.2-1.9) Urine Leukocyte Esterase Negative (NEGATIVE) Urine RBC 15 /HPF (0-2/HPF) Urine WBC 1 /HPF (0-5/HPF) Urine Squamous Epithelial Cells None /LPF (NONE-FEW) Urine Bacteria Negative /HPF (NONE-FEW) Urine Mucus None /HPF (NONE-FEW) Influenza Virus Type A (PCR) Negative (NEGATIVE) Influenza Virus Type B (PCR) Negative (NEGATIVE) Chemistry Test 06/12/18 17:44 06/12/18 18:14 White Blood Count 10.7 k/uL (4.5-11.0) Red Blood Count 5.59 M/uL (4.00-5.60) Hemoglobin 16.4 g/dL (14.0-18.0) Hematocrit 47.8 % (42.0-52.0) Mean Corpuscular Volume 85.5 fL (80.0-96.0) Mean Corpuscular Hemoglobin 29.3 pg (26.0-33.0) Mean Corpuscular Hemoglobin Concent 34.3 g/dL (32.0-36.0) Red Cell Distribution Width 13.4 % (11.5-14.5) Platelet Count 140 K/uL (150-450) Mean Platelet Volume 8.3 fL (7.2-11.1) Neutrophils (%) (Auto) 77.7 % (39.4-72.5) Lymphocytes (%) (Auto) 13.0 % (17.6-49.6) Monocytes (%) (Auto) 8.4 % (4.1-12.4) Eosinophils (%) (Auto) 0.3 % (0.4-6.7) Basophils (%) (Auto) 0.6 % (0.3-1.4) Nucleated RBC Relative Count (auto) 0.0 /100WBC Neutrophils # (Auto) 8.3 K/uL (2.0-7.4) Lymphocytes # (Auto) 1.4 K/uL (1.3-3.6) Monocytes # (Auto) 0.9 K/uL (0.3-1.0) Eosinophils # (Auto) 0.0 K/uL (0.0-0.5) Basophils # (Auto) 0.1 K/uL (0.0-0.1) Nucleated RBC Absolute Count (auto) 0.00 K/uL Glomerular Filtration Rate Calc > 60.0 Lactate 1.9 mmol/L (0.7-2.1) Calcium Level 9.9 mg/dl (8.4-10.2) Total Bilirubin 1.3 mg/dl (0.2-1.3) Aspartate Amino Transf (AST/SGOT) 64 U/L (0-35) Alanine Aminotransferase (ALT/SGPT) 29 U/L (0-56) Alkaline Phosphatase 102 U/L (0-126) Troponin I < 0.012 ng/ml Total Protein 7.7 g/dl (6.3-8.2) Albumin 5.2 g/dl (3.5-5.0) Lipase 92 U/L (23-300) Urine Color Yellow Urine Clarity Clear Urine pH 6.0 pH (4.8-9.5) Urine Specific [place] 1.013 Urine Protein 100 mg/dL (NEGATIVE) Urine Glucose (UA) Negative mg/dL (NEGATIVE) Urine Ketones 20 mg/dL (NEGATIVE) Urine Blood Small (NEGATIVE) Urine Nitrite Negative (NEGATIVE) Urine Bilirubin Negative (NEGATIVE) Urine Urobilinogen Negative mg/dL (0.2-1.9) Urine Leukocyte Esterase Negative (NEGATIVE) Urine RBC 15 /HPF (0-2/HPF) Urine WBC 1 /HPF (0-5/HPF) Urine Squamous Epithelial Cells None /LPF (NONE-FEW) Urine Bacteria Negative /HPF (NONE-FEW) Urine Mucus None /HPF (NONE-FEW) Influenza Virus Type A (PCR) Negative (NEGATIVE) Influenza Virus Type B (PCR) Negative (NEGATIVE) Urinalysis Test 06/12/18 18:14 Urine Color Yellow Urine Clarity Clear Urine pH 6.0 pH (4.8-9.5) Urine Specific [place] 1.013 Urine Protein 100 mg/dL (NEGATIVE) Urine Glucose (UA) Negative mg/dL (NEGATIVE) Urine Ketones 20 mg/dL (NEGATIVE) Urine Blood Small (NEGATIVE) Urine Nitrite Negative (NEGATIVE) Urine Bilirubin Negative (NEGATIVE) Urine Urobilinogen Negative mg/dL (0.2-1.9) Urine Leukocyte Esterase Negative (NEGATIVE) Urine RBC 15 /HPF (0-2/HPF) Urine WBC 1 /HPF (0-5/HPF) Urine Squamous Epithelial Cells None /LPF (NONE-FEW) Urine Bacteria Negative /HPF (NONE-FEW) Urine Mucus None /HPF (NONE-FEW) (YANELI PERSAUD DO) EKG/Imaging EKG Interpretation 12 lead EKG: Sinus rhythm with PVCs, ventricular rate 75, QTC 471, no ischemic changes Rhythm: normal sinus rhythm Longs: normal QRS: normal ST segments: normal Monitor Interpretation: NSR with PVCs Imaging CT CAP pending completion (MORALES SORENSEN DO) Imaging Results: CT scan of the chest, abdomen and pelvis with IV contrast was obtained. The results of the study are ADDENDUM #1 ADDENDUM: Addition to the findings and impression: The T3 metastatic lesion has progressed showing destructive changes to the vertebral body extending to the left po sterior elements. There is also a soft tissue mass measuring at least 2.1 x 2.1 cm with a prominent extension of the soft tissue mass into the left spinal canal region likely causing significant spinal canal narrowing and likely compression of the spinal cord. There are no other discrete areas of canal involvement within the thoracic or lumbar spine. I called report to Dr. Persaud at 06/12/2018 8:40 PM. Result Report Dictated By: Jean Paul Webber at 06/12/2018 8:49 PM Report E-Signed By: Jean Paul Webber at 06/12/2018 8:51 PM ORIGINAL REPORT EXAMINATION: CT chest with IV contrast CT abdomen with IV contrast CT pelvis with IV contrast HISTORY: Weakness and abdominal numbness. History of tumor on thoracic spine. TECHNIQUE: Spiral scan was obtained through the chest, abdomen and pelvis during injection of nonionic iodinated intravenous contrast. Sagittal and c oronal reformatted images are also submitted. One of the following dose optimization techniques was utilized in the performance of this exam: Automated exposure control; adjustment of the mA and/or kV according to the patient's size; or use of an iterative reconstruction technique. Specific details can be referenced in the facility's radiology CT exam operational policy. CONTRAST: 75 mL of IV [id number]. COMPARISON: 01/18/2018. 01/22/2018. MR abdomen on 01/01/2018. FINDINGS: CT THORAX: Lungs / pleura: No consolidations, pleural effusion or pneumothorax. No discrete nodule. No focal interstitial opacities. Airways are clear. Mediastinum / santino: No enlarged lymph nodes or abnormal density. Heart / pericardium: Normal size without pericardial effusion. Vessels: The aorta shows no aneurysm or dissection. The pulmonary arteries are grossly normal. Musculoskeletal / Body wall: The T3 vertebral body shows worsening compression which is at least 60 percent compressed without retropulsion. Mixed sclerotic lucencies present consistent with metastatic disease. The vertebral bodies show no other indication of lesions or acute abnormality. Mild degenerative changes. No other indication of fractures. The lateral right eighth rib does show a lytic lesion which is more prominent than the previous examination. The posterior lateral right 10th rib shows a ill-defined lytic lesion which is not well appreciated previously. No other discrete aggressive bony lesions are identified. Chest wall shows no enlarged axillary lymph nodes or masses. There is a stable subcentimeter hypodensity in the right thyroid lobe likely benign as it measures [address] ABDOMEN AND PELVIS: Liver / biliary: The liver again shows several hypodense lesions. Most of which are simple cysts. However there are at least two suspicious lesions for metastatic disease. The anterior left lobe measures 1.5 x 2.0 cm and the superior caudate lobe measures 2.1 x 1.9 cm. These are similar to the previous exam. There appears to be a couple subcentimeter hypodense lesions which may re present new metastatic lesions there are least two these visualized within the right lobe. The gallbladder and biliary system are unremarkable. Pancreas: No focal normality. Spleen: No focal abnormality. Adrenal glands: Negative. Kidneys: Kidneys show no stones, hydronephrosis or discrete lesions. Pelvic structures: Pelvic structures visualized within normal limits. A Naylor catheter seen within the urinary bladder with nondependent air likely from the Naylor placement Bowel: Sigmoid colon shows a few diverticula without pericolonic inflammation. The colon shows no other focal abnormality with some stool seen throughout. The appendix is normal. The small bowel shows no focal abnormality or obstruction. Stomach is mildly decompressed and grossly normal. Peritoneum / retroperitoneum / mesenteries: No free air, free fluid, fluid collections or areas of inflammation. Vessels: Negative. Musculoskeletal / Body wall: The vertebral bodies show no cavity to the superior endplate of the L3 vertebral body without retropulsion. This is not seen previously. The vertebral bodies otherwise show no indication of compression fracture or aggressive bony lesions. Minimal degenerative changes. The left mid ileum does show worsening lytic destructive lesion. The left inferior rami shows worsening destructive lytic lesion with associated soft tissue density/mass measuring at least 3.9 cm in width. The left sacrum shows a faint ill-defined lucency which may be early metastatic lesion. The bony pelvis shows no other discrete lesions or acute abnormality. Lymph node assessment: Negative. IMPRESSION: 1. No acute cardiopulmonary disease. 2. No acute abnormality to the abdomen and pelvis. 3. Continued metastatic liver lesions and there may be a couple subcentimeter lesions. There is worsening compression of the T3 vertebral body with metastatic lesion. Worsening metastatic lesions to the right eighth and 10th ribs, left ilium, left inferior rami and possibly left sacrum. There is minimal concavity of the superior endplate L3 vertebral body. Unsure if this is due to a new metastatic disease or a prominent Schmorl's node. 4. Diverticulosis without radiographic indication diverticulitis. 5. Other chronic findings as above. EXAMINATION: CT Lumbar spine without intravenous contrast, reconstructions from the CT abdomen and pelvis. HISTORY: History of thoracic spine tumor. Weakness and abdominal numbness. COMPARISON: CT abdomen pelvis on 01/28/2018. TECHNIQUE: Axial images were obtained through the lumbar spine without IV contrast administration. Coronal and sagittal reformatted images were obtained from the axial source data. One of the following dose optimization techniques was utilized in the performance of this exam: Automated exposure control; adjustment of the mA and/or kV according to the patient's size; or use of an iterative recon struction technique. Specific details can be referenced in the facility's radiology CT exam operational policy. FINDINGS: The vertebral bodies are aligned. There is no concavity of the superior en dplate L3 vertebral body without retropulsion. The vertebral bodies show no other indication of compression fractures or aggressive bony lesions. There is aggressive destructive lesion seen in the left inferior rami with soft tissue density. There is also worsening destructive lesion of the left ilium and a possible new lytic ill-defined lesion in the left sacrum. No other aggressive bony lesions. Mild degenerative changes are present mainly mild facet arthropathy and osteophyte and disc space narrowing at the thoracolumbar junction the endplates are otherwise maintained. The disks show no herniations. No appreciable bony canal stenosis or significant neural foramina narrowing. The surrounding paraspinal soft tissues are unremarkable. Other soft tissues as described above CT chest abdomen and pelvis. IMPRESSION: 1. There is a new concavity of the superior endplate of the L3 vertebral body. Unsure if this is due to metastatic disease or Schmorl's node. No other indication of acute abnormality or metastatic disease to the thoracic spine. 2. There is worsening destructive metastatic lesions of the left inferior rami, left ilium and possibly left sacrum. The study was read by the radiologist. I viewed the images myself on the PACS system. (YANELI PERSAUD DO) ED Course/Re-evaluation ED Course Patient is a 58-year-old male here with complaints of generalized weakness, urinary retention, abdominal paresthesias in the setting of prostate cancer with metastatic disease. Patient is a known thoracic metastasis however there is no tenderness on palpation of the lumbar spine. Patient's neurovascular exam is int act in the lower extremity with mild symmetrical weakness with hip flexors. Naylor catheter was placed for bladder drainage. Patient describes a one week progressive generalized weakness, difficulty walking. Patient was given Decadron, fluids, Zofran for symptom management. Labs were unremarkable with a negative troponin. EKG showed intermittent PVCs with no ischemic changes. CT chest abdomen pelvis were completed due to patient's complaints with lumbar reconstruction. Patient was signed out to Dr. Persaud at shift change. Decision to Disposition Date: Jun 13, 2018 Decision to Disposition Time: 19:00 (MORALES SORENSEN DO) ED Course Care was assumed at shift change from Dr. Sorensen with diagnostic CT is pending. Patient's CT is returned with increasing size of a T3 metastasis with some spinal cord compression noted. I had a prolonged discussion with the patient is family, advising that he follow-up with his oncology doctors. It seems like he's been seeking alternative treatments. I think that he likely would benefit from some radiation. He'll be started on Decadron twice a day. Decision to Disposition Date: Jun 12, 2018 Decision to Disposition Time: 20:51 (YANELI PERSAUD DO) Depart Departure Latest Vital Signs Vital Signs Date Time Temp Pulse Resp B/P (MAP) Pulse Ox O2 Delivery O2 Flow Rate FiO2 06/12/18 20:35 76 92 06/12/18 20:30 135/87 (103) 06/12/18 18:04 98.0 14 Room Air (YANELI PERSAUD DO) Impression: Primary Impression: Spinal cord compression Additional Impression: Prostate cancer metastatic to bone Condition: Improved Disposition: HOME OR SELF-CARE Referrals: ROCIO SAVAGE MD (PCP) New Scripts Dexamethasone (Decadron) 6 Mg Tablet 1 TAB PO BID for spinal tumor swelling, #14 Prov: YANELI PERSAUD DO 06/12/18 Patient Instructions: Bone Metastasis (ED) Additional Instructions: Follow-up with your oncology specialists tomorrow or Saturday Problem Qualifiers MORALES SORENSEN DO Jun 12, 2018 17:17 YANELI PERSAUD DO Jun 12, 2018 20:54
[2018-06-12] MEDS ORDERED: NS(*) 0.9% 1000 ML BAG 1,000 ML IV ONE (17:27)
[2018-06-12] MEDS ORDERED: ONDANSETRON 4 MG/2 ML VIAL IVP ONE (17:30)
[2018-06-12] MEDS ORDERED: IOPAMIDOL 76% 100 ML INFUS BTL 100 ML ONE (17:45)
--- NOTE | 2018-06-12 17:47 | EKG ---
FACILITY: [facility] PATIENT NAME: KARLEY ARROYO : [id number] MR: [id number] V: [id number] EXAM DATE: ORDERING PHYSICIAN: MORALES GARBER TECHNOLOGIST: STEPHANI Olivares Reason : WEAKNESS Blood Pressure : / mmHG Vent. Rate : 075 BPM Atrial Rate : 075 BPM P-R Int : 170 ms QRS Dur : 086 ms QT Int : 422 ms P-R-T Axes : 074 066 063 degrees QTc Int : 471 ms Sinus rhythm with occasional premature ventricular complexes Nonspecific ST findings inferior leads - similar to previous Confirmed by BENTLEY FLORES ([id number] on 06/12/2018 7:44:31 PM Referred By: JCARLOS Confirmed By:BENTLEY FLORES
[2018-06-12] MEDS ORDERED: DEXAMETHASONE SOD PHOS 10MG/ML IVP ONE (17:50)
[2018-06-12] MEDS ORDERED: LIDOCAINE 2% 200MG/10ML UROJET TP ONE (17:55)
[2018-06-12 17:56] LABS: PLATELET COUNT, AUTOMATED 140 K/uL (150-450)
[2018-06-12 20:30] VITALS: BP 135/87
--- NOTE | 2018-06-12 20:40 | RADIOLOGY IMAGING REPORT ---
FACILITY: [facility] PATIENT NAME: Jean Paul Go : 1960 MR: [id number] V: [id number] EXAM DATE: ORDERING PHYSICIAN: MORALES GARBER TECHNOLOGIST: Location: [facility] [place] Patient: Jean Paul Go : 1960 Visit/Account:[id number] Date of Sevice: 06/12/2018 ADDENDUM #1 ADDENDUM: Addition to the findings and impression: The T3 metastatic lesion has progressed showing destructive changes to the vertebral body extending to the left posterior elements. There is also a soft tissue mass measuring at least 2.1 x 2.1 cm with a prominent extension of the soft tissue mass into the left spinal canal region likely causing significant spinal canal narrowing and likely compression of the spinal cord. There are no other discrete areas of canal involvement within the thoracic or lumbar sp ine. I called report to Dr. Persaud at 06/12/2018 8:40 PM. Result Report Dictated By: Jean Paul Webber at 06/12/2018 8:49 PM Report E-Signed By: Jean Paul Webber at 06/12/2018 8:51 PM ORIGINAL REPORT EXAMINATION: CT chest with IV contrast CT abdomen with IV contrast CT pelvis with IV contrast HISTORY: Weakness and abdominal numbness. History of tumor on thoracic spine. TECHNIQUE: Spiral scan was obtained through the chest, abdomen and pelvis during injection of nonio lela iodinated intravenous contrast. Sagittal and coronal reformatted images are also submitted. One of the following dose optimization techniques was utilized in the performance of this exam: Autom ated exposure control; adjustment of the mA and/or kV according to the patient's size; or use of an i terative reconstruction technique. Specific details can be referenced in the facility's radiology C T exam operational policy. CONTRAST: 75 mL of IV Isovue-370. COMPARISON: 01/18/2018. 01/22/2018. MR abdomen on 01/01/2018. FINDINGS: CT THORAX: Lungs / pleura: No consolidations, pleural effusion or pneumothorax. No discrete nodule. No focal interstitial opacities. Airways are clear. Mediastinum / santino: No enlarged lymph nodes or abnormal density. Heart / pericardium: Normal size without pericardial effusion. Vessels: The aorta shows no aneurysm or dissection. The pulmonary arteries are grossly normal. Musculoskeletal / Body wall: The T3 vertebral body shows worsening compression which is at least 60 percent compressed without retropulsion. Mixed sclerotic lucencies present consistent with metastati c disease. The vertebral bodies show no other indication of lesions or acute abnormality. Mild dege nerative changes. No other indication of fractures. The lateral right eighth rib does show a lytic lesion which is more prominent than the previous examination. The posterior lateral right 10th rib s hows a ill-defined lytic lesion which is not well appreciated previously. No other discrete aggressi ve bony lesions are identified. Chest wall shows no enlarged axillary lymph nodes or masses. There is a stable subcentimeter hypodensity in the right thyroid lobe likely benign as it measures [address] ABDOMEN AND PELVIS: Liver / biliary: The liver again shows several hypodense lesions. Most of which are simple cysts. H owever there are at least two suspicious lesions for metastatic disease. The anterior left lobe lisbet ures 1.5 x 2.0 cm and the superior caudate lobe measures 2.1 x 1.9 cm. These are similar to the prev ious exam. There appears to be a couple subcentimeter hypodense lesions which may represent new meta static lesions there are least two these visualized within the right lobe. The gallbladder and bilia ry system are unremarkable. Pancreas: No focal normality. Spleen: No focal abnormality. Adrenal glands: Negative. Kidneys: Kidneys show no stones, hydronephrosis or discrete lesions. Pelvic structures: Pelvic structures visualized within normal limits. A Naylor catheter seen withi n the urinary bladder with nondependent air likely from the Naylor placement Bowel: Sigmoid colon show s a few diverticula without pericolonic inflammation. The colon shows no other focal abnormality wit h some stool seen throughout. The appendix is normal. The small bowel shows no focal abnormality or obstruction. Stomach is mildly decompressed and grossly normal. Peritoneum / retroperitoneum / mesenteries: No free air, free fluid, fluid collections or areas of in flammation. Vessels: Negative. Musculoskeletal / Body wall: The vertebral bodies show no cavity to the superior endplate of the L3 v ertebral body without retropulsion. This is not seen previously. The vertebral bodies otherwise manoj w no indication of compression fracture or aggressive bony lesions. Minimal degenerative changes. T he left mid ileum does show worsening lytic destructive lesion. The left inferior rami shows worseni ng destructive lytic lesion with associated soft tissue density/mass measuring at least 3.9 cm in wid th. The left sacrum shows a faint ill-defined lucency which may be early metastatic lesion. The bon y pelvis shows no other discrete lesions or acute abnormality. Lymph node assessment: Negative. IMPRESSION: 1. No acute cardiopulmonary disease. 2. No acute abnormality to the abdomen and pelvis. 3. Continued metastatic liver lesions and there may be a couple subcentimeter lesions. There is wor sening compression of the T3 vertebral body with metastatic lesion. Worsening metastatic lesions to the right eighth and 10th ribs, left ilium, left inferior rami and possibly left sacrum. There is mi nimal concavity of the superior endplate L3 vertebral body. Unsure if this is due to a new metastati c disease or a prominent Schmorl's node. 4. Diverticulosis without radiographic indication diverticulitis. 5. Other chronic findings as above. EXAMINATION: CT Lumbar spine without intravenous contrast, reconstructions from the CT abdomen and pelvis. HISTORY: History of thoracic spine tumor. Weakness and abdominal numbness. COMPARISON: CT abdomen pelvis on 01/28/2018. TECHNIQUE: Axial images were obtained through the lumbar spine without IV contrast administration. C oronal and sagittal reformatted images were obtained from the axial source data. One of the following dose optimization techniques was utilized in the performance of this exam: Autom ated exposure control; adjustment of the mA and/or kV according to the patient's size; or use of an i terative reconstruction technique. Specific details can be referenced in the facility's radiology C T exam operational policy. FINDINGS: The vertebral bodies are aligned. There is no concavity of the superior endplate L3 vertebral body w ithout retropulsion. The vertebral bodies show no other indication of compression fractures or aggre ssive bony lesions. There is aggressive destructive lesion seen in the left inferior rami with soft tissue density. There is also worsening destructive lesion of the left ilium and a possible new lyti c ill-defined lesion in the left sacrum. No other aggressive bony lesions. Mild degenerative change s are present mainly mild facet arthropathy and osteophyte and disc space narrowing at the thoracolum bar junction the endplates are otherwise maintained. The disks show no herniations. No appreciable bony canal stenosis or significant neural foramina narrowing. The surrounding paraspinal soft tissue s are unremarkable. Other soft tissues as described above CT chest abdomen and pelvis. IMPRESSION: 1. There is a new concavity of the superior endplate of the L3 vertebral body. Unsure if this is du e to metastatic disease or Schmorl's node. No other indication of acute abnormality or metastatic di sease to the thoracic spine. 2. There is worsening destructive metastatic lesions of the left inferior rami, left ilium and possi sintia left sacrum. Report Dictated By: Jean Paul Webber at 06/12/2018 8:06 PM Report E-Signed By: Jean Paul Webber at 06/12/2018 8:37 PM
[2018-06-12] MEDS ORDERED: DEXA6TAB2 PO (20:54)
== END 2018-06-12 21:10 | disposition home or self-care (01) ==
LOC: ER 17:51
DX: G95.20 Unspecified cord compression (principal); C61 Malignant neoplasm of prostate; C79.51 Secondary malignant neoplasm of bone
CPT/HCPCS: 71260; 74177; 76376; 81001; 83605; 83690; 84484; 85025; 87502; 93005; 96361; 96374; 99284; A4340; J1100; J7030; Q9967; 82040; 82247; 82310; 82374; 82435; 82565; 82947; 84075; 84132; 84155; 84295; 84450; 84460; 84520

== ENCOUNTER 2018-06-21 22:19 | Emergency (ER) | payer SELFPAY ==
--- NOTE | 2018-06-21 22:28 | ER Report ---
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 He has a notable T3 lesion. Was seen here in the ER and 06/12/18 with urinary retention and numbness of his abdominal wall. He was able to move his extremities at that time. He was discharged home on Decadron 6 mg twice a day and advised to follow-up urgently with oncology clinic for referral to radiation oncology. Patient on Percocet and Valium. REVIEW OF SYSTEMS: Respiratory: No cough, no dyspnea. Cardiovascular: No chest pain, no palpitations. Gastrointestinal: No vomiting, no abdominal pain. Musculoskeletal: No back pain. Allergies: Coded Allergies: Penicillins (Verified Allergy, Unknown, 05/06/18) Home Meds Active Scripts Dexamethasone (Decadron) 6 Mg Tablet, 1 TAB PO BID for spinal tumor swelling, #14 Prov:YANELI DUARTE DO 06/12/18 Oxycodone Hcl/Acetaminophen (PERCOCET 5-325 MG TABLET) 1 Each Tablet, 1 EACH PO Q4H PRN for PAIN, #12 TAB 0 Refills Prov:PIYUSH LUIS MD 05/06/18 Diazepam (VALIUM) 5 Mg Tablet, 5 MG PO 2-3XD for Muscle Relaxant, #15 TAB Prov:PIYUSH LUIS MD 05/06/18 Oxycodone Hcl/Acetaminophen (PERCOCET 5-325 MG TABLET) 1 Each Tablet, 1-2 EACH PO Q4-6H PRN for pain, #20 Prov:YANELI DUARTE DO 01/18/18 Reviewed Nurses Notes: Yes Old Medical Records Reviewed: Yes Hx Substance Use Disorder: No Hx Alcohol Use: No Constitutional Vital Sign - Last 24 Hours 06/21/18 06/21/18 06/21/18 06/21/18 22:19 22:23 22:26 22:30 Temp 97.8 Pulse ??? 72 Resp 17 B/P (MAP) 120/81 (94) 120/81 138/107 (117) Pulse Ox 94 O2 Delivery Room Air 06/21/18 06/21/18 06/21/18 06/21/18 22:49 23:00 23:19 23:30 Pulse 71 81 B/P (MAP) 130/67 (88) 112/81 (91) Pulse Ox 96 94 06/21/18 06/22/18 06/22/18 06/22/18 23:35 00:00 00:05 00:30 Pulse 76 B/P (MAP) 96/75 (82) 113/83 (93) Pulse Ox 94 94 06/22/18 00:35 Pulse 61 Pulse Ox 93 Physical Exam General Appearance: The patient is alert, has no immediate need for airway protection and no current signs of toxicity. No acute distress, vital signs stable, afebrile, flaccid paralysis from the level of approximately T3 patient has an indwelling Naylor catheter HEENT: Pupils equal and round no injection. Respiratory: Chest is non tender, lungs are clear to auscultation. Cardiac: regular rate and rhythm Gastrointestinal: Abdomen is soft and non tender, no masses, bowel sounds normal. Musculoskeletal: Neck: Neck is supple and non tender. Extremities have full range of motion and are non tender. Skin: No rashes or lesions. Neuro: Alert and oriented 3, movement of upper extremities. Lower extremities with flaccid paralysis and numbness. DIFFERENTIAL DIAGNOSIS: After history and physical exam differential diagnosis was considered for spinal cord compression, metastatic prostate cancer Medical Decision Making Data Points Result Diagram: 06/21/18224006/21/182240 Laboratory Hematology Test 06/21/18 22:41 Red Blood Count 5.18 M/uL (4.00-5.60) Mean Corpuscular Volume 86.8 fL (80.0-96.0) Mean Corpuscular Hemoglobin 29.3 pg (26.0-33.0) Mean Corpuscular Hemoglobin Concent 33.8 g/dL (32.0-36.0) Red Cell Distribution Width 13.9 % (11.5-14.5) Mean Platelet Volume 8.4 fL (7.2-11.1) Neutrophils (%) (Auto) 56.4 % (39.4-72.5) Lymphocytes (%) (Auto) 33.2 % (17.6-49.6) Monocytes (%) (Auto) 6.9 % (4.1-12.4) Eosinophils (%) (Auto) 2.2 % (0.4-6.7) Basophils (%) (Auto) 1.3 % (0.3-1.4) Nucleated RBC Relative Count (auto) 0.0 /100WBC Neutrophils # (Auto) 5.6 K/uL (2.0-7.4) Lymphocytes # (Auto) 3.3 K/uL (1.3-3.6) Monocytes # (Auto) 0.7 K/uL (0.3-1.0) Eosinophils # (Auto) 0.2 K/uL (0.0-0.5) Basophils # (Auto) 0.1 K/uL (0.0-0.1) Nucleated RBC Absolute Count (auto) 0.00 K/uL Peripheral Blood Smear Yes Y/N Sodium Level 135 mmol/L (137-145) Potassium Level 3.9 mmol/L (3.5-5.0) Chloride Level 98 mmol/L (98-107) Carbon Dioxide Level 29 mmol/L (22-30) Blood Urea Nitrogen 17 mg/dl (9-21) Creatinine 1.00 mg/dl (0.66-1.25) Glomerular Filtration Rate Calc > 60.0 Random Glucose 92 mg/dl (75-110) Calcium Level 9.3 mg/dl (8.4-10.2) Magnesium Level 2.2 mg/dl (1.7-2.2) Total Bilirubin 0.8 mg/dl (0.2-1.3) Aspartate Amino Transf (AST/SGOT) 40 U/L (0-35) Alanine Aminotransferase (ALT/SGPT) 30 U/L (0-56) Alkaline Phosphatase 88 U/L (0-126) Total Protein 6.8 g/dl (6.3-8.2) Albumin 4.4 g/dl (3.5-5.0) Chemistry Test 06/21/18 22:41 White Blood Count 9.8 k/uL (4.5-11.0) Red Blood Count 5.18 M/uL (4.00-5.60) Hemoglobin 15.2 g/dL (14.0-18.0) Hematocrit 44.9 % (42.0-52.0) Mean Corpuscular Volume 86.8 fL (80.0-96.0) Mean Corpuscular Hemoglobin 29.3 pg (26.0-33.0) Mean Corpuscular Hemoglobin Concent 33.8 g/dL (32.0-36.0) Red Cell Distribution Width 13.9 % (11.5-14.5) Platelet Count 188 K/uL (150-450) Mean Platelet Volume 8.4 fL (7.2-11.1) Neutrophils (%) (Auto) 56.4 % (39.4-72.5) Lymphocytes (%) (Auto) 33.2 % (17.6-49.6) Monocytes (%) (Auto) 6.9 % (4.1-12.4) Eosinophils (%) (Auto) 2.2 % (0.4-6.7) Basophils (%) (Auto) 1.3 % (0.3-1.4) Nucleated RBC Relative Count (auto) 0.0 /100WBC Neutrophils # (Auto) 5.6 K/uL (2.0-7.4) Lymphocytes # (Auto) 3.3 K/uL (1.3-3.6) Monocytes # (Auto) 0.7 K/uL (0.3-1.0) Eosinophils # (Auto) 0.2 K/uL (0.0-0.5) Basophils # (Auto) 0.1 K/uL (0.0-0.1) Nucleated RBC Absolute Count (auto) 0.00 K/uL Peripheral Blood Smear Yes Y/N Glomerular Filtration Rate Calc > 60.0 Calcium Level 9.3 mg/dl (8.4-10.2) Magnesium Level 2.2 mg/dl (1.7-2.2) Total Bilirubin 0.8 mg/dl (0.2-1.3) Aspartate Amino Transf (AST/SGOT) 40 U/L (0-35) Alanine Aminotransferase (ALT/SGPT) 30 U/L (0-56) Alkaline Phosphatase 88 U/L (0-126) Total Protein 6.8 g/dl (6.3-8.2) Albumin 4.4 g/dl (3.5-5.0) EKG/Imaging Imaging Old CT results from 06/12/18 EXAMINATION: CT chest with IV contrast CT abdomen with IV contrast CT pelvis with IV contrast HISTORY: Weakness and abdominal numbness. History of tumor on thoracic spine. TECHNIQUE: Spiral scan was obtained through the chest, abdomen and pelvis during injection of nonionic iodinated intravenous contrast. Sagittal and coronal reformatted images are also submitted. One of the following dose optimization techniques was utilized in the perfo rmance of this exam: Automated exposure control; adjustment of the mA and/or kV according to the patient's size; or use of an iterative reconstruction technique. Specific details can be referenced in the facility's radiology CT exam operational policy. CONTRAST: 75 mL of IV Isovue-370. COMPARISON: 01/18/2018. 01/22/2018. MR abdomen on 01/01/2018. FINDINGS: CT THORAX: Lungs / pleura: No consolidations, pleural effusion or pneumothorax. No discrete nodule. No focal interstitial opacities. Airways are clear. Mediastinum / santino: No enlarged lymph nodes or abnormal density. Heart / pericardium: Normal size without pericardial effusion. Vessels: The aorta shows no aneurysm or dissection. The pulmonary arteries are grossly normal. Musculoskeletal / Body wall: The T3 vertebral body shows worsening compression which is at least 60 percent compressed without retropulsion. Mixed sclerotic lucencies present consistent with metastatic disease. The vertebral bodies show no other indication of lesions or acute abnormality. Mild degenerative changes. No other indication of fractures. The lateral right eighth rib does show a lytic lesion which is more prominent than the previous examination. The posterior lateral right 10th rib shows a ill-defined lytic lesion which is not well appreciated previously. No other discrete aggressive bony lesions are identified. Chest wall shows no enlarged axillary lymph nodes or masses. There is a stable subcentimeter hypodensity in the right thyroid lobe likely benign as it measures [address] ABDOMEN AND PELVIS: Liver / biliary: The liver again shows several hypodense lesions. Most of which are simple cysts. However there are at least two suspicious lesions for metastatic disease. The anterior left lobe measures 1.5 x 2.0 cm and the superior caudate lobe measures 2.1 x 1.9 cm. These are similar to the previous exam. There appears to be a couple subcentimeter hypodense lesions which may represent new metastatic lesions there are least two these visualized within the right lobe. The gallbladder and biliary system are unremarkable. Pancreas: No focal normality. Spleen: No focal abnormality. Adrenal glands: Negative. Kidneys: Kidneys show no stones, hydronephrosis or discrete lesions. Pelvic structures: Pelvic structures visualized within normal limits. A Naylor catheter seen within the urinary bladder with nondependent air likely from the Naylor placement Bowel: Sigmoid colon shows a few diverticula without pericolonic inflammation. The colon shows no other focal abnormality with some stool seen throughout. The appendix is normal. The small bowel shows no focal abnormality or obstruction. Stomach is mildly decompressed and grossly normal. Peritoneum / retroperitoneum / mesenteries: No free air, free fluid, fluid collections or areas of inflammation. Vessels: Negative. Musculoskeletal / Body wall: The vertebral bodies show no cavity to the superior endplate of the L3 vertebral body without retropulsion. This is not seen previously. The vertebral bodies otherwise show no indication of compression fracture or aggressive bony lesions. Minimal degenerative changes. The left mid ileum does show worsening lytic destructive lesion. The left inferior rami shows worsening destructive lytic lesion with associated soft tissue density/mass measuring at least 3.9 cm in width. The left sacrum shows a faint ill-defined lucency which may be early metastatic lesion. The bony pelvis shows no other discrete lesions or acute abnormality. Lymph node assessment: Negative. IMPRESSION: 1. No acute cardiopulmonary disease. 2. No acute abnormality to the abdomen and pelvis. 3. Continued metastatic liver lesions and there may be a couple subcentimeter lesions. There is worsening compression of the T3 vertebral body with metastatic lesion. Worsening metastatic lesions to the right eighth and 10th ribs, left ilium, left inferior rami and possibly left sacrum. There is minimal concavity of the superior endplate L3 vertebral body. Unsure if this is due to a new metastatic disease or a prominent Schmorl's node. 4. Diverticulosis without radiographic indication diverticulitis. 5. Other chronic findings as above. EXAMINATION: CT Lumbar spine without intravenous contrast, reconstructions from the CT abdomen and pelvis. HISTORY: History of thoracic spine tumor. Weakness and abdominal numbness. COMPARISON: CT abdomen pelvis on 01/28/2018. TECHNIQUE: Axial images were obtained through the lumbar spine without IV contrast administration. Coronal and sagittal reformatted images were obtained from the axial source data. One of the following dose optimization techniques was utilized in the performance of this exam: Automated exposure control; adjustment of the mA and/or kV according to the patient's size; or use of an iterative reconstruction technique. Specific details can be referenced in the facility's radiology CT exam operational policy. FINDINGS: The vertebral bodies are aligned. There is no concavity of the superior endplate L3 vertebral body without retropulsion. The vertebral bodies show no other indication of compression fractures or aggressive bony lesions. There is aggressive destructive lesion seen in the left inferior rami with soft tissue density. There is also worsening destructive lesion of the left ilium and a possible new lytic ill-defined lesion in the left sacrum. No other aggressive bony lesions. Mild degenerative changes are present mainly mild facet arthropathy and osteophyte and disc space narrowing at the thoracolumbar junction the endplates are otherwise maintained. The disks show no herniations. No appreciable bony canal stenosis or significant neural foramina narrowing. The surrounding paraspinal soft tissues are unremarkable. Other soft tissues as described above CT chest abdomen and pelvis. IMPRESSION: 1. There is a new concavity of the superior endplate of the L3 vertebral body. Unsure if this is due to metastatic disease or Schmorl's node. No other indication of acute abnormality or metastatic disease to the thoracic spine. 2. There is worsening destructive metastatic lesions of the left inferior rami, left ilium and possibly left sacrum. Report Dictated By: Jean Paul Webber at 06/12/2018 8:06 PM Report E-Signed By: Jean Paul Webber at 06/12/2018 8:37 PM ED Course/Re-evaluation Clinical Indication for ER IV: IV Access ED Course Patient was admitted to an examination room. H&P was done. The differential diagnoses was considered. Patient with acute back pain and spasm brought in by EMS with flaccid paralysis and numbness from T3 on down. Patient received Ativan 1 mg IV for acute back spasm and Dilaudid 1 mg. Patient's been on Percocet and Valium. Patient was seen 9 days ago and advised urgent follow-up with radiation oncology and neurosurgery as well as oncology clinic here. He failed to follow-up for whatever reason. IM suggesting an urgent transfer so that he may get inpatient consultation of the services as soon as possible. There may be no potential benefit, but patient deserves to have consultation in inpatient setting. Since he is unable to walk and care for himself at home now. I think the patient ultimately be a candidate for hospice. 06/21/2018 11:11:[address] Monk and Dr. Herrera neurosurgery at [facility]. They advise transfer to facility with more capability they will be unable to provide surgery at the T3 level. 06/21/2018 11:26:[address] Red at [facility] who accepts the patient for transfer to her facility. Decision to Disposition Date: Jun 21, 2018 Decision to Disposition Time: 23:09 Depart Departure Latest Vital Signs Vital Signs Date Time Temp Pulse Resp B/P (MAP) Pulse Ox O2 Delivery O2 Flow Rate FiO2 06/22/18 00:35 61 93 06/22/18 00:30 113/83 (93) 06/21/18 22:26 97.8 17 Room Air Impression: Primary Impression: Lumbar paraspinal muscle spasm Additional Impressions: Prostate cancer metastatic to bone Spinal cord compression Condition: Improved Disposition: XFER TO ACUTE CARE HOSPITAL Referrals: ROCIO SAVAGE MD (PCP) Problem Qualifiers YANELI DUARTE DO Jun 21, 2018 22:28
[2018-06-21] MEDS ORDERED: LORazepam 2 MG/ML VIAL IVP ONE (22:40)
[2018-06-21] MEDS ORDERED: HYDROMORPHONE HCL 1 MG/ML SYRINGE IVP ONE (22:40)
[2018-06-21 22:45] LABS: PLATELET COUNT, AUTOMATED 188 K/uL (150-450)
[2018-06-22 00:30] VITALS: BP 113/83
== END 2018-06-22 00:45 | disposition short-term general hospital (02) ==
LOC: ER 22:26
DX: M62.830 Muscle spasm of back (principal); G95.20 Unspecified cord compression; C61 Malignant neoplasm of prostate; C79.51 Secondary malignant neoplasm of bone
CPT/HCPCS: 83735; 84153; 85025; 96374; 96375; 99285; J1170; J2060; 82040; 82247; 82310; 82374; 82435; 82565; 82947; 84075; 84132; 84155; 84295; 84450; 84460; 84520

== ENCOUNTER → 2018-06-21 | Outpatient (CLI) | payer SELFPAY ==
[~2018-06-21] MED LIST changes: +DEXA6TAB2 PO
== END ==
LOC: AMB 21:43
PROVIDERS: ATTEND Nurse Practitioner
DX: G82.20 Paraplegia, unspecified (principal); R20.0 Anesthesia of skin
CPT/HCPCS: A0425; A0429

== ENCOUNTER → 2018-06-22 | Outpatient (CLI) | payer SELFPAY | LOC: AMB 01:15 | PROVIDERS: ATTEND Nurse Practitioner | DX: C80.1 Malignant (primary) neoplasm, unspecified (principal) | CPT/HCPCS: A0425; A0428; A0888 ==